=== PATIENT | female | born 2000 | race Caucasian/White ===

== ENCOUNTER 2020-12-09 13:03 | Inpatient (IN) | payer MEDICAID ==
[2020-12-09] VITALS (12 sets, daily range): BP systolic 104–128; BP diastolic 50–75; BMI 42.9
[~2020-12-09] VITALS: Ht 170.2 cm; Wt 124.0 kg
--- NOTE | 2020-12-09 13:00 | NUR ---
PT ARRIVED TO UNIT AT THIS TIME FROM [facility] VIA [facility]ANCE. SHE IS ALERT AND ORIENTED. SHE IS CONTINUOUSLY COMPLAINING OF PAIN TO HER BILATERAL FEET WITH AN EMPHASIS ON THE LEFT FOOT. NOTED SOME BLOTCHING APPEARANCE TO BOTH HANDS AND FEET, CAPILLARY REFILL UNDER [address] WILL [address]IFY [address] NGO OF THIS FOR FURTHER ORDRES. ALSO SHE IS CURRENTLY ON 8L NC, OXYGEN SATURATION 94% VSS. WILL CONTINUE PLAN OF CARE.
[2020-12-09] MEDS ORDERED: SYNTHROID75 MCG PO (13:29)
[2020-12-09] MEDS ORDERED: GLUCOPHAGE1000 MG PO (13:29)
--- NOTE | 2020-12-09 13:53 | NUR ---
DR NGO HERE TO SEE PT, ORDERS PLACED.
[2020-12-09 14:39] LABS: HEMATOCRIT 31.1 % (36.0-48.0); HEMOGLOBIN 10.4 g/dL (12-16); LYMPHOCYTE ABS# 3.38 10x3/uL (1.18-3.74); MCH 29.2 pg (26.0-34.0); MCHC 33.4 g/dL (31.0-37.0); MCV 87.4 fL (80.0-100.0); MEAN PLATELET VOLUME 9.4 fL (7.4-10.4); PLATELET COUNT 448 10x3/uL (130-400); RBC 3.56 10x6/uL (4.00-5.40); RDW 12.8 % (11.5-14.5); WBC 31.9 10x3/uL (4.8-10.8)
--- NOTE | 2020-12-09 14:58 | NUR ---
DDIMER ELEVATED AT 11.98 DR NGO NOTIFIED OF THIS, SHE STATED SHE WILL PLACE ORDERS.
[2020-12-09 15:15] LABS: ALBUMIN 2.3 g/dL (3.4-5.0); ALKALINE PHOSPHATASE 211 U/L (30-120); ALT (SGPT) 21 U/L (10-68); BILIRUBIN - TOTAL 0.98 mg/dL (0.2-1.3); CALC OSMOLALITY 284 mosm/kg (275-300); CALCIUM 8.9 mg/dL (8.5-10.1); CARBON DIOXIDE 26.6 mmol/L (21.0-32.0); CHLORIDE - SERUM 99 mmol/L (98-107); CREATININE - SERUM 0.6 mg/dL (0.6-1.3); EOSINOPHILS 1 % (0-7); FERRITIN 294 ng/mL (3-244); GLUCOSE 330 mg/dL (74-106); HCG - QUANTITATIVE (MATERNAL) 0 mIU/mL; LDH 456 U/L (81-234); LYMPHOCYTES 12 % (15-50); MONOCYTES 3 % (2-11); NEUTROPHILS 78 % (40-80); PLATELET ESTIMATE NORMAL; POTASSIUM - SERUM 4.4 mmol/L (3.5-5.1); PROTEIN - SERUM 6.4 g/dL (6.4-8.2); SODIUM 136 mmol/L (136-145); UREA NITROGEN 12 mg/dL (7-18); eGFR NON AFRICAN AMERICAN > 90 mL/min (90-120)
[2020-12-09 15:38] LABS: APTT 33.4 SECONDS (22.8-39.4); INR 1.35 (0.85-1.17); PROTIME 15.4 SECONDS (11.6-15.0)
[2020-12-09 15:40] LABS: ERYTHROCYTE SEDIMENTATION RATE 99 mm/hr (0-20)
--- NOTE | 2020-12-09 17:24 | NUR ---
PER DR NGO, SINCE POSITIVE FOR DVTS WILL START LOVENOX 1MG/KG Q12H.
[2020-12-09 19:04] LABS: BASOPHILS 0.2 % (0-2); HEMATOCRIT 29.2 % (36.0-48.0); HEMOGLOBIN 9.6 g/dL (12-16); IMMATURE GRANULOCYTES 3.2 % (0-5); LYMPHOCYTE ABS# 4.43 10x3/uL (1.18-3.74); LYMPHOCYTES 13.6 % (15-50); MCH 28.7 pg (26.0-34.0); MCHC 32.9 g/dL (31.0-37.0); MCV 87.4 fL (80.0-100.0); MEAN PLATELET VOLUME 9.5 fL (7.4-10.4); MONOCYTES 4.7 % (2-11); NEUTROPHIL ABS# 25.09 10x3/uL (1.56-6.13); NEUTROPHILS 77.3 % (40-80); PLATELET COUNT 452 10x3/uL (130-400); RBC 3.34 10x6/uL (4.00-5.40); RDW 12.8 % (11.5-14.5); WBC 32.5 10x3/uL (4.8-10.8)
--- NOTE | 2020-12-09 21:51 | NUR ---
PT COMPLAINS OF PAIN ON LEFT BOTTOM OF FEET. GABAPENTIN ALREADY ADMINISTERED AT SCHEDULED. DR DUNBAR MADE AWARE. NO NEW ORDER AT THIS MOMENT
[2020-12-10] VITALS (25 sets, daily range): BP systolic 104–139; BP diastolic 66–87
[2020-12-10 04:24] LABS: HEMATOCRIT 27.6 % (36.0-48.0); LYMPHOCYTE ABS# 3.06 10x3/uL (1.18-3.74); MCH 28.8 pg (26.0-34.0); MCHC 32.6 g/dL (31.0-37.0); MCV 88.2 fL (80.0-100.0); MEAN PLATELET VOLUME 9.5 fL (7.4-10.4); NEUTROPHIL ABS# 30.71 10x3/uL (1.56-6.13); PLATELET COUNT 495 10x3/uL (130-400); RBC 3.13 10x6/uL (4.00-5.40); RDW 12.9 % (11.5-14.5); WBC 37.1 10x3/uL (4.8-10.8)
[2020-12-10 04:28] LABS: INR 1.31 (0.85-1.17); PROTIME 15.1 SECONDS (11.6-15.0)
[2020-12-10 04:39] LABS: EOSINOPHILS 1 % (0-7); ERYTHROCYTE SEDIMENTATION RATE 97 mm/hr (0-20); LYMPHOCYTES 10 % (15-50); MONOCYTES 4 % (2-11); NEUTROPHILS 78 % (40-80); PLATELET ESTIMATE INCREASED
[2020-12-10 04:46] LABS: ALBUMIN 2.1 g/dL (3.4-5.0); ALKALINE PHOSPHATASE 199 U/L (30-120); ALT (SGPT) 18 U/L (10-68); BILIRUBIN - TOTAL 0.86 mg/dL (0.2-1.3); CARBON DIOXIDE 26.2 mmol/L (21.0-32.0); CHLORIDE - SERUM 100 mmol/L (98-107); CREATININE - SERUM 0.7 mg/dL (0.6-1.3); GLUCOSE 287 mg/dL (74-106); MAGNESIUM - SERUM 2.1 mg/dL (1.8-2.4); POTASSIUM - SERUM 4.6 mmol/L (3.5-5.1); SODIUM 135 mmol/L (136-145); eGFR NON AFRICAN AMERICAN > 90 mL/min (90-120)
[2020-12-10 04:56] LABS: CALC OSMOLALITY 281 mosm/kg (275-300); UREA NITROGEN 19 mg/dL (7-18)
--- NOTE | 2020-12-10 11:30 | NUR ---
IN AND OUT CATH PERFORMED USING STERILE TECHNIQUE FOR URINE COLLECTION, SENT TO LAB. VSS. NO ACUTE DISTRESS NOTED. WILL CONTINUE PLAN OF CARE.
[2020-12-10 13:39] LABS: BILIRUBIN NEGATIVE (NEGATIVE); KETONE SMALL mg/dL (NEGATIVE); NITRITE NEGATIVE (NEGATIVE); UROBILINOGEN NORMAL mg/dL (< 2)
[2020-12-10 13:40] LABS: WHITE CELLS - URINE 0-5 HPF (0-4)
[2020-12-10 13:41] LABS: AMORPHOUS SEDIMENT <1+ LPF (NONE SEEN); BACTERIA FEW HPF (NONE SEEN); SQUAMOUS EPITHELIAL 0-5 HPF (0-4)
--- NOTE | 2020-12-10 13:59 | NUR ---
LYING IN BED RESTING AT THIS TIME. NO ACUTE DISTRESS NOTED. RESPIRATIONS STEADY AND UNLABORED. NO ACUTE DISTRESS NOTED. WILL CONTINUE PLAN OF CARE.
--- NOTE | 2020-12-10 17:14 | NUR ---
PTS AT BEDSIDE, UPDATES PROVIDED.
--- NOTE | 2020-12-10 18:07 | NUR ---
IS ATTEMPT 750.
--- NOTE | 2020-12-10 18:44 | NUR ---
IR CONSULT FOR LE DVT AND PAIN HAS BEEN RELAYED TO DR IRELAND INTERVENTIONAL RADIOLOGIST FOR REVIEW AT 1845 VIA TELELPHONE . HE WILL REVIEW
--- NOTE | 2020-12-10 20:50 | NUR ---
PT COMPLAINS OF PAIN ON BOTTOM FEET. SCHEDULED GABAPENTIN AND PRN NORCO ADMINISTERED.
[2020-12-11] VITALS (25 sets, daily range): BP systolic 94–187; BP diastolic 43–114; Ht 170.2 cm; Wt 124.0 kg
--- NOTE | 2020-12-11 06:08 | NUR ---
PT'S O2 LEVEL DROP TO 60%. O2 INCREASED BUT O2 SAT IMPROVED TO 85% DR MADE AWARE NEW ORDER OF NRB OR BIPAP 21/02 IF NRB DID NOT HELP.
[2020-12-11 07:09] LABS: ALBUMIN 2.1 g/dL (3.4-5.0); ALKALINE PHOSPHATASE 189 U/L (30-120); ALT (SGPT) 20 U/L (10-68); BILIRUBIN - TOTAL 0.72 mg/dL (0.2-1.3); CALC OSMOLALITY 283 mosm/kg (275-300); CALCIUM 9.2 mg/dL (8.5-10.1); CARBON DIOXIDE 26.8 mmol/L (21.0-32.0); CHLORIDE - SERUM 98 mmol/L (98-107); CREATININE - SERUM 0.7 mg/dL (0.6-1.3); POTASSIUM - SERUM 4.8 mmol/L (3.5-5.1); PROTEIN - SERUM 6.6 g/dL (6.4-8.2); SODIUM 132 mmol/L (136-145); UREA NITROGEN 18 mg/dL (7-18); eGFR NON AFRICAN AMERICAN > 90 mL/min (90-120)
[2020-12-11 07:10] LABS: GLUCOSE 399 mg/dL (74-106)
[2020-12-11 07:40] LABS: BASOPHILS 0.2 % (0-2); EOSINOPHILS 1.4 % (0-7); HEMATOCRIT 26.7 % (36.0-48.0); HEMOGLOBIN 8.7 g/dL (12-16); IMMATURE GRANULOCYTES 5.3 % (0-5); LYMPHOCYTE ABS# 5.07 10x3/uL (1.18-3.74); LYMPHOCYTES 15.6 % (15-50); MCH 28.7 pg (26.0-34.0); MCHC 32.6 g/dL (31.0-37.0); MCV 88.1 fL (80.0-100.0); MONOCYTES 5.9 % (2-11); NEUTROPHIL ABS# 23.22 10x3/uL (1.56-6.13); NEUTROPHILS 71.6 % (40-80); PLATELET COUNT 511 10x3/uL (130-400); RBC 3.03 10x6/uL (4.00-5.40); RDW 13.2 % (11.5-14.5); WBC 32.4 10x3/uL (4.8-10.8)
[2020-12-11 08:45] LABS: INR 1.35 (0.85-1.17); PROTIME 15.4 SECONDS (11.6-15.0)
[2020-12-12] VITALS: BP 120/62
[2020-12-12 01:00] VITALS: BP 74/51
[2020-12-12 02:00] VITALS: BP 144/77
--- NOTE | 2020-12-12 02:07 | NUR ---
dr. nathaniel shaikh
[2020-12-12 08:14] LABS: RAPID PLASMA REAGIN Non Reactive (Non Reactive)
[2020-12-12 08:14] LABS: HAPTOGLOBIN 475 mg/dL (33-278)
[2020-12-12 10:11] LABS: ANA REFLEX - DIRECT Negative (Negative)
[2020-12-12 12:11] LABS: ACLA - IGG AB <9 GPL U/mL (0-14); ACLA - IGM AB 18 MPL U/mL (0-12)
[2020-12-12 13:12] LABS: ACID FAST SMEAR Negative (()); AFB SPECIMEN PROCESSING Concentration (())
[2020-12-12 14:10] LABS: CHLAMYDIA TRACHOMATIS, NAA Negative (Negative)
[2020-12-13 12:12] LABS: LUPUS - INTERPRETATION Comment: (()); LUPUS - THROMBIN TIME 14.2 sec (0.0-23.0); LUPUS - dRVVT 29.7 sec (0.0-47.0); PTT-LA 30.4 sec (0.0-51.9)
[2020-12-13 12:12] LABS: ANGIOTENSIN CONVERTING ENZYME 51 U/L (14-82)
[2020-12-13 12:12] LABS: PROCALCITONIN 0.43 ng/mL (0.00-0.08)
[2020-12-13 13:12] LABS: SPECIMEN SOURCE Urine (())
[2020-12-13 13:12] LABS: EHRLICHIA CHAFF IGG Negative (Neg:<1:64); EHRLICHIA CHAFF IGM Negative (Neg:<1:20); HGE IGG TITER Negative (Neg:<1:64); HGE IGM TITER Negative (Neg:<1:20)
[2020-12-13 15:12] LABS: PROTEIN S - FREE >297 % (57-157); PROTEIN S - FUNCTIONAL 103 % (63-140); PROTEIN S - TOTAL 104 % (60-150)
[2020-12-13 15:12] LABS: PROTEIN S - FREE >297 % (57-157); PROTEIN S - TOTAL 99 % (60-150)
[2020-12-13 16:09] LABS: FUNGUS STAIN Final report (())
--- NOTE | 2020-12-13 17:41 | MORECARE ---
CASE MANAGEMENT DISCHARGE SUMMARY PATIENT: YULI KRAFT UNIT: [id number] ADM DATE: 12/09/20 AGE: 20 : 98 SEX: F ROOM/BED: D.230 AUTHOR: SAM,DOC PHYSICIAN: REFERRING PHYSICIAN: MARCO NGO MD DATE OF SERVICE: 12/13/20 Case Management Discharge Planning Summary DCP REVIEW SUMMARY ANTICIPATED D/C DATE: EXPECTED LOS : CASE STATUS: DCP Initiated INITIAL REVIEW: 12/09/2020 INITIAL REVIEWER: Sandra Adamson FINAL DISCHARGE DISPOSITION: 20 : FINAL REVIEWER: Sandra Adamson FINAL REVIEW DATE: 12/13/2020 DCP [employer] Questions [employer] Answers QUESTION: ANSWER : PATIENT: YULI KRAFT ENCOUNTER: [id number] MEDICAL RECORD#: [id number] ADMISSION DATE: 12/09/2020 DISCHARGE DATE: 12/12/2020 ATTENDING MD: : AGE: 20 MARITAL STATUS: M DC PLAN ID: [id number] FACILITY: [facility] PRINTED ON: 12/13/20 17:41 CT All edits/amendments must be made on the electronic document DICTATION DATE: 12/13/201740 [employer]ARM MACHINERY MECHANIC: EUFEMIA 12/13/201740 RPT#: [id number] DC DATE:12/12/20 STATUS: DIS IN [facility] [address] [place] [address] END OF REPORT
[2020-12-14 03:08] LABS: RMSF IGM 0.11 index (0.00-0.89)
[2020-12-14 09:12] LABS: IMMUNOGLOBULIN E 25 IU/mL (6-495)
[2020-12-14 12:11] LABS: PROTEIN C - ANTIGEN 103 % (60-150); PROTEIN C - FUNCTIONAL 122 % (73-180)
[2020-12-14 16:09] LABS: ANCA - ANTIMYELOPEROXIDASE <9.0 U/mL (0.0-9.0); ANCA - ANTIPROTEINASE 3 >100.0 U/mL (0.0-3.5); ANCA - ATYPICAL <1:20 titer (Neg:<1:20); ANCA - PERINUCLEAR <1:20 titer (Neg:<1:20)
== END 2020-12-12 03:03 | DRG 208 ==
LOC: D.ICU 13:03
PROVIDERS: Internal Medicine Pulmonary Disease; ADMIT Family Medicine; ATTEND Family Medicine
PROC: 0BH17EZ Insertion of Endotracheal Airway into Trachea, Via Natural or Artificial Opening (ICD-10-PCS; principal; 2020-12-11)
PROC: 5A1945Z Respiratory Ventilation, 24-96 Consecutive Hours (ICD-10-PCS; 2020-12-11)
PROC: 0B9J8ZX Drainage of Left Lower Lung Lobe, Via Natural or Artificial Opening Endoscopic, Diagnostic (ICD-10-PCS; 2020-12-11)
PROC: 05HM33Z Insertion of Infusion Device into Right Internal Jugular Vein, Percutaneous Approach (ICD-10-PCS; 2020-12-11)
DX: J82.82 Acute eosinophilic pneumonia (principal); J18.9 Pneumonia, unspecified organism; J96.01 Acute respiratory failure with hypoxia; Z68.41 Body mass index [BMI] 40.0-44.9, adult; J45.901 Unspecified asthma with (acute) exacerbation; I82.403 Acute embolism and thrombosis of unspecified deep veins of lower extremity, bilateral; D68.59 Other primary thrombophilia; E10.65 Type 1 diabetes mellitus with hyperglycemia; D64.9 Anemia, unspecified; E03.9 Hypothyroidism, unspecified; E66.01 Morbid (severe) obesity due to excess calories; D86.9 Sarcoidosis, unspecified; I10 Essential (primary) hypertension; R59.1 Generalized enlarged lymph nodes; R00.0 Tachycardia, unspecified; Z79.84 Long term (current) use of oral hypoglycemic drugs; Z91.19 Patient's noncompliance with other medical treatment and regimen; I46.9 Cardiac arrest, cause unspecified; R79.82 Elevated C-reactive protein (CRP); R74.02 Elevation of levels of lactic acid dehydrogenase [LDH]